=== PATIENT | female | born 1945 | race Caucasian/White ===

== ENCOUNTER → 2016-05-01 10:08 | Outpatient (CLI) | payer MEDICARE ==
[2013-10-23 14:05] VITALS: BMI 20.1
[~2016-05-01 10:08] MED LIST: FLAGYL250 MG PO; HYDROCODONE-APA1 TAB PO; NICODERM C1 PATCH .3 TD; PRILOSEC20 MG PO; RESTORIL15 MG PO
== END | disposition home or self-care (01) ==
LOC: D.CT 10:08
DX: R91.1 Solitary pulmonary nodule (principal)

== ENCOUNTER 2016-09-04 07:39 | Emergency (ER) | payer MEDICARE ==
[2013-10-23 14:05] VITALS: BMI 20.1
[2016-09-04 08:33] LABS: HEMATOCRIT 41.7 % (36.0-48.0); MCH 30.7 pg (26.0-34.0); MCHC 33.6 g/dL (31.0-37.0); MCV 91.4 fL (80.0-100.0); MEAN PLATELET VOLUME 9.1 fL (7.4-10.4); PLATELET COUNT 224 10x3/uL (130-400); RBC 4.56 10x6/uL (4.00-5.40); RDW 14.9 % (11.5-14.5); WBC 6.6 10x3/uL (4.8-10.8)
[2016-09-04 08:45] LABS: ALBUMIN 4.1 g/dL (3.4-5.0); ANION GAP 16.2 mmol/L (8-16); BILIRUBIN - TOTAL 0.5 mg/dL (0.2-1.3); CALCIUM 9.4 mg/dL (8.5-10.1); CARBON DIOXIDE 24.4 mmol/L (21.0-32.0); CREATININE - SERUM 0.9 mg/dL (0.6-1.3); POTASSIUM - SERUM 3.6 mmol/L (3.5-5.1)
[2016-09-04 09:09] LABS: APPEARANCE SLT CLOUDY (CLEAR); BACTERIA MANY /hpf (NONE SEEN); BILIRUBIN NEGATIVE (NEGATIVE); COLOR YELLOW (YELLOW); EPITHELIAL CELLS 0-5 /hpf (0-5); GLUCOSE NEGATIVE (NEGATIVE); KETONE NEGATIVE (NEGATIVE); LEUKOCYTE ESTERASE 2+ (NEGATIVE); MUCUS <1+ /lpf (NONE SEEN); NITRITE NEGATIVE (NEGATIVE); PROTEIN NEGATIVE (NEGATIVE); RED CELLS - URINE 0-5 /hpf (0-5); SPECIFIC GRAVITY 1.015 (1.005-1.020); UROBILINOGEN NORMAL (NORMAL)
[2016-09-04 09:17] LABS: EOSINOPHILS 2 % (0-7); LYMPHOCYTES 51 % (15-50); MONOCYTES 8 % (2-11); NEUTROPHILS 38 % (40-80); PLATELET ESTIMATE NORMAL
== END 2016-09-04 10:10 | disposition home or self-care (01) ==
LOC: D.ER 07:39
PROVIDERS: Emergency Medicine
DX: R00.0 Tachycardia, unspecified (principal); R11.10 Vomiting, unspecified; R19.7 Diarrhea, unspecified; N39.0 Urinary tract infection, site not specified

== ENCOUNTER → 2016-12-22 14:08 | Outpatient (CLI) | payer MEDICARE ==
[2013-10-23 14:05] VITALS: BMI 20.1
== END | disposition home or self-care (01) ==
LOC: D.CT 12-04 11:00
DX: R91.1 Solitary pulmonary nodule (principal)

== ENCOUNTER 2017-04-05 16:27 | Emergency (ER) | payer MEDICARE ==
[2013-10-23 14:05] VITALS: BMI 20.1
== END 2017-04-05 17:44 | disposition home or self-care (01) ==
LOC: D.ER 16:27
DX: I10 Essential (primary) hypertension (principal); Z91.19 Patient's noncompliance with other medical treatment and regimen; F17.200 Nicotine dependence, unspecified, uncomplicated

== ENCOUNTER 2017-08-31 16:45 | Emergency (ER) | payer MEDICARE ==
[2013-10-23 14:05] VITALS: BMI 20.1
[2017-08-31 17:22] LABS: BASOPHILS 0.5 % (0-2); EOSINOPHILS 0.9 % (0-7); HEMATOCRIT 42.2 % (36.0-48.0); HEMOGLOBIN 14.4 g/dL (12-16); IMMATURE GRANULOCYTES 0.3 % (0-5); LYMPHOCYTES 20.2 % (15-50); MCH 31.4 pg (26.0-34.0); MCHC 34.1 g/dL (31.0-37.0); MCV 92.1 fL (80.0-100.0); MEAN PLATELET VOLUME 9.7 fL (7.4-10.4); MONOCYTES 4.5 % (2-11); NEUTROPHILS 73.6 % (40-80); PLATELET COUNT 229 10x3/uL (130-400); RBC 4.58 10x6/uL (4.00-5.40); RDW 13.9 % (11.5-14.5); WBC 9.6 10x3/uL (4.8-10.8)
[2017-08-31 17:41] LABS: ALBUMIN 3.8 g/dL (3.4-5.0); ALKALINE PHOSPHATASE 124 U/L (46-116); ALT (SGPT) 45 U/L (10-68); CALC OSMOLALITY 278 mosm/kg (275-300); CALCIUM 9.9 mg/dL (8.5-10.1); CARBON DIOXIDE 26.9 mmol/L (21.0-32.0); CHLORIDE - SERUM 101 mmol/L (98-107); CREATININE - SERUM 0.9 mg/dL (0.6-1.3); GLUCOSE 128 mg/dL (74-106); POTASSIUM - SERUM 4.4 mmol/L (3.5-5.1); PROTEIN - SERUM 7.5 g/dL (6.4-8.2); SODIUM 139 mmol/L (136-145); UREA NITROGEN 11 mg/dL (7-18); eGFR NON AFRICAN AMERICAN 65 mL/min (90-120)
[2017-08-31 17:42] LABS: APPEARANCE CLEAR (CLEAR); COLOR YELLOW (YELLOW)
[2017-08-31 17:43] LABS: AMYLASE - SERUM 92 U/L (25-115); BILIRUBIN NEGATIVE (NEGATIVE); GLUCOSE NEGATIVE (NEGATIVE); KETONE NEGATIVE (NEGATIVE); LIPASE 182 U/L (73-393); NITRITE POSITIVE (NEGATIVE); PROTEIN NEGATIVE (NEGATIVE); TROPONIN-I < 0.017 ng/mL (0.000-0.060); UROBILINOGEN NORMAL (NORMAL)
[2017-08-31 17:44] LABS: BACTERIA MANY /hpf (NONE SEEN); EPITHELIAL CELLS 0-5 /hpf (0-5); RED CELLS - URINE OCC /hpf (0-5); WHITE CELLS - URINE 0-5 /hpf (0-5)
[2017-08-31 18:57] LABS: APTT 25.3 SECONDS (22.8-39.4); INR 0.94 (0.85-1.17); PROTIME 12.1 SECONDS (11.6-15.0)
== END 2017-08-31 20:59 | disposition home or self-care (01) ==
LOC: D.ER 16:45
PROVIDERS: Family Medicine; Physician Assistant Medical
DX: N39.0 Urinary tract infection, site not specified (principal); K57.92 Diverticulitis of intestine, part unspecified, without perforation or abscess without bleeding; I10 Essential (primary) hypertension; F17.200 Nicotine dependence, unspecified, uncomplicated

== ENCOUNTER 2018-07-23 10:39 | Emergency (ER) | payer OTHER ==
[~2018-07-23] VITALS: Ht 157.5 cm; Wt 60.0 kg
[2018-07-23 10:58] VITALS: Ht 157.5 cm; Wt 60.0 kg
[2018-07-23] MEDS ORDERED: BETABLOCKER PO (11:01)
[2018-07-23 11:35] LABS: BASOPHILS 0.4 % (0-2); EOSINOPHILS 2.2 % (0-7); HEMATOCRIT 42.9 % (36.0-48.0); HEMOGLOBIN 14.4 g/dL (12-16); IMMATURE GRANULOCYTES 0.1 % (0-5); LYMPHOCYTES 34.6 % (15-50); MCH 30.2 pg (26.0-34.0); MCHC 33.6 g/dL (31.0-37.0); MCV 89.9 fL (80.0-100.0); MEAN PLATELET VOLUME 9.6 fL (7.4-10.4); MONOCYTES 5.6 % (2-11); NEUTROPHILS 57.1 % (40-80); PLATELET COUNT 274 10x3/uL (130-400); RBC 4.77 10x6/uL (4.00-5.40); RDW 13.9 % (11.5-14.5); WBC 8.2 10x3/uL (4.8-10.8)
[2018-07-23 11:45] LABS: APPEARANCE HAZY (CLEAR); BILIRUBIN NEGATIVE (NEGATIVE); COLOR YELLOW (YELLOW); GLUCOSE NEGATIVE (NEGATIVE); KETONE NEGATIVE (NEGATIVE); NITRITE POSITIVE (NEGATIVE); PROTEIN NEGATIVE (NEGATIVE); UROBILINOGEN NORMAL (NORMAL)
[2018-07-23 11:46] LABS: BACTERIA MANY /hpf (NONE SEEN); HYALINE CAST 0-5 /lpf (NONE SEEN); RED CELLS - URINE 0-5 /hpf (0-5)
[2018-07-23 12:07] LABS: ALBUMIN 4.1 g/dL (3.4-5.0); ANION GAP 13.9 mmol/L (8-16); BILIRUBIN - TOTAL 0.47 mg/dL (0.2-1.3); CALCIUM 9.4 mg/dL (8.5-10.1); CARBON DIOXIDE 28.5 mmol/L (21.0-32.0); CREATININE - SERUM 0.8 mg/dL (0.6-1.3); POTASSIUM - SERUM 4.4 mmol/L (3.5-5.1); PROTEIN - SERUM 8.5 g/dL (6.4-8.2)
[2018-07-23] MEDS ORDERED: FLAGYL500 MG PO (12:30)
[2018-07-23] MEDS ORDERED: CIPRO500 MG PO (12:30)
[2018-07-23 13:11] VITALS: BP 132/68
== END 2018-07-23 13:12 | disposition home or self-care (01) ==
LOC: D.ER 10:39
PROVIDERS: Family Medicine
DX: N39.0 Urinary tract infection, site not specified (principal)

== ENCOUNTER → 2018-11-08 08:00 | Outpatient (CLI) | payer OTHER ==
[2018-07-23 10:58] VITALS: BMI 24.2
[~2018-11-08 08:00] MED LIST changes: +BETABLOCKER PO; +CIPRO500 MG PO; +FLAGYL500 MG PO
== END | disposition home or self-care (01) ==
LOC: D.MAMMO 08:00
PROVIDERS: ATTEND Family Medicine Adult Medicine
DX: Z12.31 Encounter for screening mammogram for malignant neoplasm of breast (principal)

== ENCOUNTER 2018-11-28 08:00 | Outpatient (CLI) | payer OTHER ==
[2018-07-23 10:58] VITALS: BMI 24.2
== END 2018-11-28 23:59 | disposition home or self-care (01) ==
LOC: D.MAMMO 08:00
PROVIDERS: ATTEND Family Medicine Adult Medicine
DX: R92.8 Other abnormal and inconclusive findings on diagnostic imaging of breast (principal)

== ENCOUNTER 2019-03-16 22:33 | Emergency (ER) | payer OTHER, MEDICAID ==
[~2019-03-16] VITALS: Ht 157.5 cm; Wt 55.0 kg
[2019-03-16 22:33] VITALS: Ht 157.5 cm; Wt 55.0 kg
[2019-03-16 23:08] LABS: BASOPHILS 0.4 % (0-2); HEMATOCRIT 36.5 % (36.0-48.0); HEMOGLOBIN 11.8 g/dL (12-16); LYMPHOCYTES 35.2 % (15-50); MCH 29.9 pg (26.0-34.0); MCHC 32.3 g/dL (31.0-37.0); MCV 92.6 fL (80.0-100.0); MEAN PLATELET VOLUME 8.9 fL (7.4-10.4); MONOCYTES 9.9 % (2-11); NEUTROPHILS 52.5 % (40-80); PLATELET COUNT 322 10x3/uL (130-400); RBC 3.94 10x6/uL (4.00-5.40); RDW 13.8 % (11.5-14.5)
[2019-03-16 23:22] LABS: APPEARANCE CLEAR (CLEAR); BILIRUBIN NEGATIVE (NEGATIVE); COLOR YELLOW (YELLOW); GLUCOSE NEGATIVE (NEGATIVE); KETONE NEGATIVE (NEGATIVE); NITRITE POSITIVE (NEGATIVE); PROTEIN NEGATIVE (NEGATIVE); UROBILINOGEN NORMAL (NORMAL)
[2019-03-16 23:23] LABS: RED CELLS - URINE 0-5 /hpf (0-5); WHITE CELLS - URINE 0-5 /hpf (NEGATIVE)
[2019-03-16 23:24] LABS: BACTERIA MANY /hpf (NEGATIVE); EPITHELIAL CELLS 0-5 /hpf (0-5)
[2019-03-16 23:44] LABS: UDS - AMPHET NEGATIVE QUAL (NEGATIVE); UDS - BARB NEGATIVE QUAL (NEGATIVE); UDS - BENZO POSITIVE QUAL (NEGATIVE); UDS - COCAINE NEGATIVE QUAL (NEGATIVE); UDS - OPIATE NEGATIVE QUAL (NEGATIVE); UDS - PCP NEGATIVE QUAL (NEGATIVE); UDS - THC POSITIVE QUAL (NEGATIVE)
[2019-03-16 23:46] LABS: ANION GAP 11.5 mmol/L (8-16); CALCIUM 9.2 mg/dL (8.5-10.1); CARBON DIOXIDE 29.9 mmol/L (21.0-32.0); CREATININE - SERUM 0.8 mg/dL (0.6-1.3); POTASSIUM - SERUM 3.4 mmol/L (3.5-5.1)
[2019-03-16 23:51] LABS: ALBUMIN 3.4 g/dL (3.4-5.0); BILIRUBIN - TOTAL 0.37 mg/dL (0.2-1.3); PROTEIN - SERUM 6.8 g/dL (6.4-8.2)
[2019-03-17] MEDS ORDERED: MACROBID100 MG PO (01:06)
--- NOTE | 2019-03-17 02:06 | NUR ---
DR SINCLAIR NOTIFIED AND REVIEWED PT's BEHAVIOR AND ASSESSMENT RESULTS. PT IS A LOW RISK PER DR SINCLAIR. DR SINCLAIR STATED TO GIVE RESOURCES TO PT AT TIME OF DISCHARGE. NO FURTHER ORDERS AT THIS TIME. RESOURCES REVIEWED WITH PT AND SHEVERBALIZED UNDERSTANDING.
[2019-03-17 04:30] VITALS: BP 103/50
== END 2019-03-17 08:36 | disposition home or self-care (01) ==
LOC: D.ER 22:33
PROVIDERS: Family Medicine
DX: S70.01XA Contusion of right hip, initial encounter (principal); W19.XXXA Unspecified fall, initial encounter; Y93.9 Activity, unspecified; Y92.9 Unspecified place or not applicable; N39.0 Urinary tract infection, site not specified; I10 Essential (primary) hypertension; Z72.0 Tobacco use; E07.9 Disorder of thyroid, unspecified

== ENCOUNTER 2019-03-21 19:08 | Inpatient (IN) | payer MEDICARE, MEDICAID ==
[~2019-03-21 19:08] MED LIST changes: +MACROBID100 MG PO
[2019-03-21 20:35] VITALS: BP 148/64
[2019-03-21] MEDS ORDERED: PHENERGAN25 M1 PO (21:09)
[2019-03-21] MEDS ORDERED: BENTYL10 MG PO (21:10)
[2019-03-21] MEDS ORDERED: CLARITIN 10 MG10 MG PO (21:12)
[2019-03-21] MEDS ORDERED: ABILIFY10 MG PO (21:13)
[2019-03-21] MEDS ORDERED: ABILIFY MAINTE400 MG IM (21:13)
[2019-03-21] MEDS ORDERED: CYCLOBENZAPRINE10 MG PO (21:14)
[2019-03-21] MEDS ORDERED: HYDROXYZINE HCL50 MG PO (21:16)
[2019-03-21 21:52] LABS: BASOPHILS 0.7 % (0-2); EOSINOPHILS 2.8 % (0-7); HEMATOCRIT 39.2 % (36.0-48.0); HEMOGLOBIN 12.8 g/dL (12-16); IMMATURE GRANULOCYTES 0.2 % (0-5); LYMPHOCYTES 49.4 % (15-50); MCH 30.1 pg (26.0-34.0); MCHC 32.7 g/dL (31.0-37.0); MCV 92.2 fL (80.0-100.0); MONOCYTES 8.8 % (2-11); NEUTROPHILS 38.1 % (40-80); PLATELET COUNT 374 10x3/uL (130-400); RBC 4.25 10x6/uL (4.00-5.40); RDW 13.5 % (11.5-14.5); WBC 5.7 10x3/uL (4.8-10.8)
[2019-03-21 21:58] VITALS: BP 148/64; BMI 20.6
[2019-03-21 22:37] LABS: ALBUMIN 3.9 g/dL (3.4-5.0); ANION GAP 10.5 mmol/L (8-16); BILIRUBIN - TOTAL 0.43 mg/dL (0.2-1.3); CALCIUM 9.1 mg/dL (8.5-10.1); CARBON DIOXIDE 29.7 mmol/L (21.0-32.0); CHOL - HDL RATIO 2.7 ratio (2.3-4.1); CREATININE - SERUM 0.8 mg/dL (0.6-1.3); LDL-HDL RATIO 1.3 ratio (1.5-3.5); POTASSIUM - SERUM 3.2 mmol/L (3.5-5.1); PROTEIN - SERUM 7.9 g/dL (6.4-8.2); THYROID STIMULATING HORMONE 1.73 uIU/mL (0.36-3.74)
--- NOTE | 2019-03-22 00:11 | NUR ---
NEW ADMIT TO DOCTOR SINCLAIR FROM [facility] RELATED TO ALTERED MENTAL STATUS. RECEIVED VIA EMS. CALM AND COOPERATIVE UPON ARRIVAL. ORIENTED TO PERSON ONLY AT THIS TIME. STATES SHE WANTS TO BE A FULL CODE. COOPERATIVE WITH ADMIT ASSESSMENT. IN BED WITH EYES CLOSED AT THIS TIME. ALYSHA ALARM IN PLACE AND ARMED.
--- NOTE | 2019-03-22 05:51 | NUR ---
PATIENT ANXIOUS. DEMANDING. INTRUSIVE. MANIPULATIVE. VERY ARGUMENTATIVE. BECAME ANGRY WHEN SIGNING CONSENTS BECAUSE SHE WANTED THE DOCTOR TO COME UP HERE AND READ HER THE CONSENTS WORD FOR WORD AND NOT THE NURSE EXPLAINING THE CONSENTS TO HER. FOLDED CONSENTS AND THREW THEM ON THE GROUND AFTER SCRIBBLING ON SOME OF THEM WHEN SHE DID NOT GET HER WAY. TRIED TO KEEP INK PEN AND BECAME MORE ANGRY WHEN TOLD SHE COULDNT KEEP IT FOR SAFETY REASONS. SHE THEN BROKE THE PEN IN HALF AND THREW IT ON THE DESK. UNABLE TO REDIRECT. PRN ATIVAN 0.5 MG IM GIVEN FOR ANXIETY AND PRN HALDOL 2 MG IM GIVEN FOR ONSET PSYCHOTIC UNSAFE BEHAVIOR.
[2019-03-22 09:11] VITALS: BP 134/65
[2019-03-22 09:47] VITALS: Wt 55.5 kg
--- NOTE | 2019-03-22 15:51 | NUR ---
PATIENT CALM, COOPERATIVE, ANSWERS QUESTIONS APPROPRIATELY, NO BEHAVIORAL ISSUES THIS SHIFT. COMPLIANT WITH MEDS. CONT. POC DIRECTED.
[2019-03-22 16:13] LABS: APPEARANCE HAZY (CLEAR); BACTERIA MANY /hpf (NEGATIVE); BILIRUBIN NEGATIVE (NEGATIVE); COLOR YELLOW (YELLOW); EPITHELIAL CELLS 0-5 /hpf (0-5); GLUCOSE NEGATIVE (NEGATIVE); KETONE NEGATIVE (NEGATIVE); NITRITE NEGATIVE (NEGATIVE); PROTEIN NEGATIVE (NEGATIVE); RED CELLS - URINE 0-5 /hpf (0-5); SPECIFIC GRAVITY 1.015 (1.005-1.020); UROBILINOGEN NORMAL (NORMAL); WHITE CELLS - URINE 0-5 /hpf (NEGATIVE)
--- NOTE | 2019-03-22 22:37 | NUR ---
REC'D PATIENT AMBULATING ON UNIT. ORIENTED X3. NO INSIGHT INTO THE REASON FOR ADMISSION RELATING "FOR OBSERVATION." LABILE. PATIENT APPEARS TO FOLLOW CONVERSATION BUT THEN WILL SAY SOMETHING THAT IS NOT REALTED IN ANY WAY. GRANDIOSE AT TIMES TALKING ABOUT WORKING IN THE LEGAL SYSTEM AND KNOWING HER RIGHTS AND HER RIGHTS ARE NOT BEING OBSERVED. ADMINISTER MEDS AND MONITOR COMPLIANCE. REDIRECT FOR GRANDIOSE IDEATION. MED COMPLIANT. VERY ARGUMENTATIVE WITH REDIRECTION FOR GRANDIOSE IDEATION. CONTINUE POC AND PROVIDE SAFE ENVIRONMENT.
[2019-03-22 22:50] VITALS: BP 168/58
[2019-03-23 07:55] LABS: ANION GAP 10.9 mmol/L (8-16); CARBON DIOXIDE 30.9 mmol/L (21.0-32.0); CREATININE - SERUM 0.8 mg/dL (0.6-1.3)
[2019-03-23 07:56] LABS: POTASSIUM - SERUM 3.8 mmol/L (3.5-5.1)
[2019-03-23 08:11] LABS: RAPID PLASMA REAGIN Non Reactive (Non Reactive)
--- NOTE | 2019-03-23 08:35 | NUR ---
REC'D PT SITTING IN CHAIR WRAPPED IN BLANKET AWAITING BREAKFAST. PT IS ALERT CONFUSED. ORIENTED X3. PT CAN FOLLOW INSTRUCTIONS, HOLD CONVERSION AND IS VERY PLESANT WITH STAFF. PREVIOUS STAFF REPORTED GRANDIOSE IDEATION. NO HEARD THUS FAR. PT AMBULATES. PT COMPLIANT WITH STAFF, MEDS AND ASSESSMENT. ABLE TO MAKE NEEDS KNOWN. DENIES ANY PAIN. WILL CONT PLAN OF CARE.
[2019-03-23 09:26] VITALS: BP 163/65
--- NOTE | 2019-03-23 11:44 | HP ---
PATIENT: DAYANA NAVAS MEDICAL RECORD: [id number] ACCOUNT: [id number] LOCATION:[facility] Dupree9 : 46 ADMISSION DATE: 03/21/19 PCP: ISHA FLOWERS MD HISTORY AND PHYSICAL EXAMINATION IDENTIFYING DATA: The patient is 74 years old and she is admitted to the hospital on a voluntary basis. CHIEF COMPLAINT: Confusion. HISTORY OF PRESENT ILLNESS: The patient was found at home, confused and was brought to the Emergency Room. She was making delusional statements and was quite disorganized. She has a longitudinal history of mental illness and has not been taking her medications. She denies that she is having active auditory or visual hallucinations but appears to be attending to internal stimuli consistent with having such symptoms. She denies that she would seek to harm herself or others. PAST MEDICAL HISTORY: Significant for chronic back pain. PAST PSYCHIATRIC HISTORY: Significant for previous hospitalizations for mental illness. FAMILY HISTORY: Unknown. ALLERGIES: No known drug allergies. CURRENT MEDICATIONS: Please see the patient's admissions MAR. SOCIAL HISTORY: The patient is . She had 3 children, 2 of whom have . She has an adult daughter who lives out of state. She has a history of poor social and occupational functioning. She denies a history of drug or alcohol abuse. MENTAL STATUS EXAMINATION: The patient is awake, alert and oriented to person and place but not to time or situation. Her mood is anxious. Her affect is constricted. Thought processes are disorganized. Memory, concentration, and abstraction abilities are moderately impaired and she denies any intent to harm herself or others as well as active psychotic symptoms. ASSETS: Supportive family members. LIABILITIES: Limited insight. DIAGNOSTIC IMPRESSION: AXIS I: Bipolar disorder, mixed, phase. AXIS II: Deferred. AXIS III: Chronic back pain. AXIS IV: Moderate stressors. AXIS V: Global Assessment Of Functioning is 40. PLAN: At this time, the patient is admitted to the hospital for comprehensive medical, psychological, and social evaluation. She will be treated with both mood stabilizing and memory enhancing medications. Her long-term prognosis is guarded. HISTORY AND PHYSICAL [id number] DAYANA NAVAS TRANSINT:[id number] Voice Confirmation ID: [id number] DOCUMENT ID: [id number] MAGGIE SINCLAIR MD at 1144 CC: [id number] DICTATION DATE: 03/22/191712 HOTEL DIRECTOR: 03/22/19 185 ADM IN [facility] [address] [place] [id number]
--- NOTE | 2019-03-23 13:39 | NUR ---
Nutrition Follow-up: Diet: Regular PO intake: 85-85-10% x 3 meals recorded since admit Last BM: 03/22/19. WT: 112# (03/22/19) Meds, labs, and nursing skin assessment reviewed. Continue current nutrition regimen. RD following.
[2019-03-23 20:09] VITALS: BP 180/60
--- NOTE | 2019-03-23 23:42 | NUR ---
REC'D PATIENT IN DAYROOM. INTRUSSIVE IN CONVERSATION. GRANDIOSE AND TALKS OF ALL THE IMPORTANT PEOPLE SHE KNOWS AND SHE IS THE BEST COOK THERE IS. PARANOID AND SUSPICIOUS. FREQUENTLY COMES TO THE NURSES STATION RELATING SOMEBODY IS GOING TO HURT HER, WE ARE UP TO SOMETHING, IS SHE GONG TO HER TOMORROW. ADMINISTER MEDS AND MONITOR COMPLIANCE. REORIENT WITH REALITY BASED INFORMATION FOR PARANOID THOUGHTS. MED COMPLIANT. POOR REORIENTATION PATIENT IS MORE ARGUMENTATIVE AND DOES NOT LISTEN TO REASON. APPEARS TO BE HAVING DIFFICULTY FANTASY FROM REALITY. CONTINUE POC AND PROVIDE SAFE ENVIRONMENT.
[2019-03-24 08:23] VITALS: BP 120/80
--- NOTE | 2019-03-24 11:31 | NUR ---
The patient is awake and alert, she is pleasant. She is talkative and she dances and she has not made any parnoid or suspicious statements today. She does like to talk and she talks to people like she has known them for years when she just met you. She is excessively complimentary. Provide prescribed meds. The patient is compliant with meds. Continue POC.
--- NOTE | 2019-03-24 13:39 | NUR ---
PT C/O OF ACHING NECK. STATING SHE THINKS SHE HAS WHIPLASH. PT C/O OF PAIN TO THE NECK AT THIS TIME. STAFF ENCOURGED PT TO QUIT DANCING AND SIT STILL TO SEE IF HER NECK STOPS HURTING.
--- NOTE | 2019-03-24 15:05 | PN ---
PATIENT:DAYANA NAVAS MEDICAL RECORD: [id number] LOCATION:[facility] ADMISSION DATE: 03/21/19 PROGRESS NOTE DATE OF SERVICE: 03/23/2019 SUBJECTIVE: The patient's case was discussed with staff. She has no new complaint. OBJECTIVE: The patient is in good behavioral control with poor insight about her situation. ASSESSMENT: Bipolar disorder. PLAN: Current medicines and therapies have been reviewed, both will be maintained. I am going to start her on an antipsychotic medication for her thought disorganization. I have spoken with her about lithium and Depakote, she does not want to take either, her reasons are evasive and I will approach this subject with her again. TRANSINT:[id number] Voice Confirmation ID: [id number] DOCUMENT ID: [id number] MAGGIE SINCLAIR MD at 1505 CC: [id number] DICTATION DATE: 03/23/191830 ROBOTIC TECHNICIAN: 03/23/192016 ADM IN [facility] [address] [place] [address]
[2019-03-24 20:59] VITALS: BP 166/69
--- NOTE | 2019-03-24 22:54 | NUR ---
B.) PT IS ALERT AND ORIENTED TO SELF AND SITUATION. SHE IS ABLE TO AMBULATE UNASSISTED AND MAKE HER NEEDS KNOWN. SHE IS PLEASANT WITH STAFF AND PEERS. SHE IS RECEIVED IN THE DAY ROOM SOCIALIZING WITH PEERS AND STAFF. I.) REDIRECT NEEDED. R.) EASY TO REDIRECT. P.) WILL CONTINUE TO MONITOR.
--- NOTE | 2019-03-25 00:26 | NUR ---
PT IS USING TOOTHPASTE TO DRAW ON THE HEAD. RESISTS REDIRECTION. WILL CONTINUE TO MONITOR.
--- NOTE | 2019-03-25 08:07 | PN ---
PATIENT:DAYANA NAVAS MEDICAL RECORD: [id number] LOCATION:[facility] Weeks112 ADMISSION DATE: 03/21/19 PROGRESS NOTE DATE OF SERVICE: 03/24/2019 SUBJECTIVE: The patient's case was discussed with staff. She has no new complaint. OBJECTIVE: The patient denies intent to harm herself or others. She has some mood lability. Her primary mood is, however, depressed. ASSESSMENT: Bipolar disorder. PLAN: The patient will be given Depakote to assist with her mood lability. She will be monitored for clinical changes associated with its use. TRANSINT:[id number] Voice Confirmation ID: [id number] DOCUMENT ID: [id number] MAGGIE SINCLAIR MD at 0807 CC: [id number] DICTATION DATE: 03/24/19 162 BROKE BEATER MACHINE OPERATOR: 03/24/19 2257 ADM IN [place] [id number] [place] [address]
[2019-03-25 08:30] VITALS: BP 164/75
--- NOTE | 2019-03-25 14:09 | NUR ---
PT. CALM THIS SHIFT, TALKATIVE WITH OTHER PATIENTS, MEDICATION COMPLIANT. NO ADVERSE BEHAVIORS NOTED. COOPERATIVE WITH STAFF AND PLAN OF CARE. CONT POC DIRECTED.
[2019-03-25 20:00] VITALS: BP 153/75
--- NOTE | 2019-03-26 00:30 | NUR ---
PT ANXIOUS AND ROAMING HER ROOM. REQUESTED PRN ATIVAN 0.5 MG PO. WILL CONTINUE TO MONITOR.
--- NOTE | 2019-03-26 01:15 | NUR ---
PT RESTING CALMLY IN BED WITH EYES CLOSED. WILL CONTINUE TO MONITOR.
--- NOTE | 2019-03-26 02:12 | NUR ---
B) Patient is alert and oriented to person and place, bizzare behavior at times, restless and anxious at times I) Administered scheduled medications as ordered, PRN Ativan 0.5 mg PO given at 00:37 for anxiety R) Mediation compliant, tolerated medication well, less anxious, sleeping now. P) Continue plan of care
--- NOTE | 2019-03-26 03:50 | NUR ---
PT TRYING TO SLEEPWALK IN THE [place]. SHE IS VERY DISORIENTED AND DIFFICULT TO REDIRECT. PLACED IN HALLWAY IN [facility] BY NURSES STATION. WILL CONTINUE TO MONITOR.
--- NOTE | 2019-03-26 10:10 | NUR ---
PT IS AWAKE AND ALERT TO PERSON AND PLACE. CALM AND COOPERATIVE WITH ASSESSMENT. PRESCRIBED MEDS PROVIDED ORDERED. MED COMPLIANT. REDIRECT AND REORIENT NEEDED. FALL PRECAUTIONS IN PLACE. WILL CPOC.
[2019-03-26 11:09] VITALS: BP 135/76
--- NOTE | 2019-03-26 14:27 | PN ---
PATIENT:DAYANA NAVAS MEDICAL RECORD: [id number] LOCATION:[facility] We[facility]112 ADMISSION DATE: 03/21/19 PROGRESS NOTE DATE OF SERVICE: 03/25/2019 SUBJECTIVE: The patient's case was discussed with staff. She has no new complaint. OBJECTIVE: The patient is in good behavioral control with limited insight about her condition. She apparently had some sort of a bizarre episode yesterday that involved her spreading toothpaste all over the rivera. When asked about this today, she tells me that it did not happen. I am not sure what to make of this. It did not seem like it was an attention seeking personality disordered behavioral set of circumstances, but when truly related to a person who is not in touch with reality. Based on that description, which I think is accurate and from sources I trust, I am going to go ahead and increase her Zyprexa to 5 mg at bedtime. Although, I did not witness the event, I think that there is sufficient information to justify the increase in the antipsychotic medication and I will be titrating upward her Depakote as well. Interestingly, she was complaining about the Depakote in a vague nonspecific way primarily about how it made her sick years ago, but she is willing to take it when I explained the potential benefit and that I will increase the dose slowly and monitor her for side effects. I am encouraged by this since her bipolar disorder does require a mood stabilizer. TRANSINT:[id number] Voice Confirmation ID: [id number] DOCUMENT ID: [id number] MAGGIE SNICLAIR MD at 1427 CC: [id number] DICTATION DATE: 03/25/19923 LIGHT TECHNICIAN: 03/25/19 1011 ADM IN [facility] [address] [place] [address]
[2019-03-26 20:00] VITALS: BP 151/69
--- NOTE | 2019-03-26 21:38 | NUR ---
RECEIVED IN DAYROOM. SITTING IN A RECLINING CHAIR WITH PEERS AT HER SIDE. CALM AND COOPERATIVE WITH CARE AND ASSESSMENT. REDIRECT AND REORIENT NEEDED. RESTING IN BED WITH EYES CLOSED AT THIS TIME. CONTINUE PLAN OF CARE
--- NOTE | 2019-03-27 00:58 | NUR ---
PATIENT VERY CONFUSED. DELUSIONAL. ATTEMPTS TO STAND WITHOUT ASSIST. UNABLE TO REDIRECT OR REORIENT. PRN HALDOL 2MG IM GIVEN FOR PSYCHOTIC UNSAFE BEHAVIOR.
--- NOTE | 2019-03-27 04:07 | NUR ---
RESTING QUIETLY IN RECLINER WITH EYES CLOSED.
--- NOTE | 2019-03-27 10:51 | NUR ---
PT IS AWAKE AND ALERT TO PERSON AND PLACE. CALM AND COOPERATIVE WITH ASSESSMENT. PRESCRIBED MEDS PROVIDED ORDERED. MED COMPLIANT. PT APPEARS TO BE MANIC AT THIS TIME. PACING BACK AND FORTH IN THE DAY ROOM. VERY TALKATIVE WITH PEERS AND STAFF. REDIRECT AND REORIENT NEEDED. FALL PRECAUTIONS IN PLACE. WILL CPOC.
--- NOTE | 2019-03-27 13:13 | PN ---
PATIENT:DAYANA NAVAS MEDICAL RECORD: [id number] LOCATION:[facility] ADMISSION DATE: 03/21/19 PROGRESS NOTE DATE OF SERVICE: 03/26/2019 SUBJECTIVE: The patient's case was discussed with staff. She has no new complaint. OBJECTIVE: The patient is in good behavioral control, but manic. She is wanting to dance and was trying to moonwalk and almost fell over. She is hyperverbal. ASSESSMENT: Bipolar disorder. PLAN: The patient will be maintained on current medicines; however, the Depakote will be increased to 500 mg twice daily. She will be monitored for clinical changes associated with its use. Her long-term prognosis is guarded. TRANSINT:[id number] Voice Confirmation ID: [id number] DOCUMENT ID: [id number] MAGGIE SINCLAIR MD at 1313 CC: [id number] DICTATION DATE: 03/26/19 1443 MANAGEMENT SCIENTIST: 03/26/19 1800 ADM IN [place] [place] [address]
[2019-03-27 20:15] VITALS: BP 136/64
--- NOTE | 2019-03-27 21:37 | NUR ---
RECEIVED IN DAYROOM. SITTING IN A CHAIR WITH PEERS AT HER SIDE. CALM AND COOPERATIVE WITH CARE AND ASSESSMENT. ENCOURAGE TO EXPRESS NEEDS. RESTING IN BED WITH EYES CLOSED AT THIS TIME. CONTINUE PLAN OF CARE
[2019-03-28 08:00] VITALS: BP 146/75
--- NOTE | 2019-03-28 08:00 | NUR ---
REC'D PT PACING HALLWAY THIS MORNING BY NURSES STATION. CALM AND COOPERATIVE WITH ASSESSMENT. PRECRIBED MEDS PROVIDED ORDERED. MED COMPLIANT. REDIRECT AND REORIENT NEEDED. FALL PRECAUTIONS IN PLACE. WILL CPOC.
--- NOTE | 2019-03-28 11:11 | PN ---
PATIENT:DAYANA NAVAS MEDICAL RECORD: [id number] LOCATION:[facility]112 ADMISSION DATE: 03/21/19 PROGRESS NOTE DATE OF SERVICE: 03/27/2019 SUBJECTIVE: The patient's case was discussed with staff. She has no new complaint. OBJECTIVE: The patient is delusional. She is claiming that she is an [employer] and [employer] agent. 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 ASSESSMENT: Bipolar disorder. PLAN: The patient will have her Zyprexa increased to 10 mg daily. Zyprexa is being used to treat her underlying psychotic symptoms. She will be monitored for clinical changes associated with its use. TRANSINT:[id number] Voice Confirmation ID: [id number] DOCUMENT ID: [id number] MAGGIE SINCLAIR MD at 1111 CC: [id number] DICTATION DATE: 03/27/19 172 FORK TRUCK DRIVER: 03/28/19 0241 ADM IN [place] [id number] [place] [id number]
[2019-03-28 20:00] VITALS: BP 155/58
--- NOTE | 2019-03-28 23:39 | NUR ---
B) pATIENT IS ALERT AND ORIENTED TO PERSON AND PLACE MOST OF THE TIME, BIZZAR BEHAVIOR AT TIMES, DELUSIONAL OR HALLUCINATING AT TIMES, I) Administered schedule medications as ordered, monitored for safety R) Medication compliant, redirected as needed, P) Continue plan of care.
--- NOTE | 2019-03-29 08:37 | PN ---
PATIENT:DAYANA NAVAS MEDICAL RECORD: [id number] LOCATION:[facility] We[facility]112 ADMISSION DATE: 03/21/19 PROGRESS NOTE DATE OF SERVICE: 03/28/2019 SUBJECTIVE: The patient's case was discussed with staff. She has no new complaint. OBJECTIVE: The patient is delusional. She still is insisting that she is an undercover [employer] and [employer] agent at the same time. ASSESSMENT: Bipolar disorder. PLAN: The patient is going to be continued on current medicines, which I have reviewed. I am going to ask for a Depakote level today. Her long-term prognosis is guarded. TRANSINT:[id number] Voice Confirmation ID: [id number] DOCUMENT ID: [id number] MAGGIE SINCLAIR MD at 0837 CC: [id number] DICTATION DATE: 03/28/19 1324 ICE DELIVERY DRIVER: 03/28/19 1407 ADM IN [place] [id number] [place] [address]
[2019-03-29 11:30] VITALS: BP 144/60
--- NOTE | 2019-03-29 15:57 | NUR ---
ORIENTED.COMPLIANT WITH STAFF AND MEDS.VISITS WITH STAFF AND PEERS.AMBULATES ABOUT UNIT WITHOUT DIFFICULTY.WILL CONTINUE WITH PLAN OF CARE,MONITOR FOR CHANGES AND SAFETY.
[2019-03-29 20:28] VITALS: BP 170/61
--- NOTE | 2019-03-30 00:20 | NUR ---
B)RECIVED SITTING IN THE DAYROOM. POOR INSIGHT INTO THE REASON FOR HOSPITALIZATION. TRIES TO HELP WITH PATIENTS. INTRUSSIVE AND WILL STAND AND LISTEN TO OTHERS CONVERSATION. I)ADMINSTER MEDS AND MONITOR COMPLIANCE. REDIRECT FOR INTRUSSIVE BEHAVIOR. R)MED COMPLIANT HOWEVER HAS DIFFICULTY SWALLOWING THE DEPAKOTE. POOR REDIRECTION. CONTINUES TO LISTEN AND IS GRANDIOSE. P)CONTINUE POC AND PROVIDE SAFE ENVIRONMENT.
[2019-03-30 09:56] VITALS: BP 134/61
--- NOTE | 2019-03-30 11:09 | NUR ---
Nutrition Follow-up: Diet: Regular PO intake: ~83% average x last 9 meals Last BM: 03/29/19. WT: 117# (03/26/19); Admit wt: 114.6# (03/21/19) Meds reviewed, no new labs. Continue current nutrition regimen. RD following.
--- NOTE | 2019-03-30 15:22 | PN ---
PATIENT:DAYANA NAVAS MEDICAL RECORD: [id number] LOCATION:[facility] ADMISSION DATE: 03/21/19 PROGRESS NOTE DATE OF SERVICE: 03/29/2019 SUBJECTIVE: The patient's case was discussed with staff. She has no new complaint. OBJECTIVE: The patient is somewhat hyperverbal and has difficulty following directions. She has a therapeutic Depakote level. She continues to be somewhat intrusive. She is taking her medicines as prescribed. I am going to increase her Zyprexa to 15 mg daily. TRANSINT:[id number] Voice Confirmation ID: [id number] DOCUMENT ID: [id number] MAGGIE SINCLAIR MD at 1522 CC: [id number] DICTATION DATE: 03/29/19 1003 OPTICAL MECHANIC APPRENTICE: 03/29/19 1022 ADM IN [id number] [place] [address]
--- NOTE | 2019-03-30 16:19 | NUR ---
B) PATIENT IS ALERT AND ORIENTED MOST OF THE TIME. CALM AND COOPERATIVE WITH CARE AND ASSESSMENT. I) ADMINISTERED PRESCRIBED MEDICATIONS ORDERED. MONITOR FOR SAFETY. R) MEDICATION COMPLIANT. REDIRECT NEEDED. P) CONTINUE POC.
[2019-03-30 20:00] VITALS: BP 134/52
--- NOTE | 2019-03-30 21:14 | NUR ---
PATIENT IS INTRUSIVE, DEMANDING AT TIMES, SHE IS AWARE OF WHERE SHE IS, COMPLIANT WITH MEDS, NO SIDE EFFECTS OF MEDS, WILL FOLLOW POC
[2019-03-31 08:02] VITALS: BP 137/68
--- NOTE | 2019-03-31 10:14 | NUR ---
ALERT, CALM, COOPERATIVE, PARTICIPATING IN GROUP, HAPPY MOOD. MEDS ADMIN PER ORDERS WITH COMPLETE MED COMPLIANCE NOTED. COOPERATIVE WITH PLAN OF CARE. CONT POC DIRECTED.
--- NOTE | 2019-03-31 14:14 | PN ---
PATIENT:DAYANA NAVAS MEDICAL RECORD: [id number] LOCATION:[facility]112 ADMISSION DATE: 03/21/19 PROGRESS NOTE DATE OF SERVICE: 03/30/2019 SUBJECTIVE: The patient's case was discussed with staff. She has no new complaint. OBJECTIVE: The patient is somewhat disorganized and distressed. I think she is under the impression that she is going to have to live here which has never been the case. I told her that repeatedly and tell her that again today, but for whatever reason she is not comfortable or has problems believing me. She is taking her medications and tolerating them reasonably well. ASSESSMENT: Schizoaffective disorder. PLAN: The patient's Depakote is going to be changed to a sprinkle so that she can more easily swallow it. She is having a great deal of trouble doing so and now change the formulation. TRANSINT:[id number] Voice Confirmation ID: [id number] DOCUMENT ID: [id number] MAGGIE SINCLAIR MD at 1414 CC: [id number] DICTATION DATE: 03/30/19 1542 AIRFRAME DESIGN ENGINEER: 03/31/19 0002 ADM IN [facility] [address] [place] [address]
[2019-03-31 20:10] VITALS: BP 117/65
--- NOTE | 2019-03-31 21:36 | NUR ---
RECEIVED IN DAYROOM. WATCHING TV. CALM AND COOPERATIVE WITH CARE AND ASSESSMENT. CONFUSED. NO AGGRESSIVE BEHAVIOR. REDIRECT AND REORIENT NEEDED. CONTINUES TO WATCH TV IN DAYROOM AT THIS TIME. CONTINUE PLAN OF CARE.
[2019-04-01 08:00] VITALS: BP 133/62
--- NOTE | 2019-04-01 08:22 | NUR ---
The patient is awake and alert and she is pleasant and calm. She is not as manic as she has been, but she does not like to sit still. She ambulates independently. Provide prescribed meds. Will monitor for compliance with meds. Continue POC.
--- NOTE | 2019-04-01 09:53 | NUR ---
The patient c/o her gums hurting. She has not worn dentures since coming here.
--- NOTE | 2019-04-01 13:05 | PN ---
PATIENT:DAYANA NAVAS MEDICAL RECORD: [id number] LOCATION:[facility] ADMISSION DATE: 03/21/19 PROGRESS NOTE DATE OF SERVICE: 03/31/2019 SUBJECTIVE: The patient's case was discussed with staff. She has no new complaint. OBJECTIVE: The patient denies intent to harm herself or others. She is tolerating her medicines reasonably well. ASSESSMENT: Bipolar disorder. PLAN: The patient's Valium is going to be reduced to 1 mg twice daily. She will be monitored for clinical changes associated with that reduction. Other medicines will be maintained. TRANSINT:[id number] Voice Confirmation ID: [id number] DOCUMENT ID: [id number] MAGGIE SINCLAIR MD at 1305 CC: [id number] DICTATION DATE: 03/31/19 1551 FIELD ARTILLERY CANNONEER: 04/01/19 0038 ADM IN [place] [id number] [place] [id number]
--- NOTE | 2019-04-01 19:49 | NUR ---
RECEIVED IN DINING ROOM AREA. SITTING AT THE TABLE BY HERSELF. CALM AND COOPERATIVE WITH CARE AND ASSESSMENT. ENCOURAGE TO EXPRESS NEEDS. SITTING CALMLY IN DAYROOM. CONTINUE PLAN OF CARE
[2019-04-01 20:24] VITALS: BP 144/66
[2019-04-02 08:17] VITALS: BP 135/63
[2019-04-02] MEDS ORDERED: BACTRIM DS PO (12:34)
[2019-04-02] MEDS ORDERED: ZYPREXA5 MG PO (12:34)
[2019-04-02] MEDS ORDERED: DEPAKOTE SPRIN125 MG PO (12:34)
[2019-04-02] MEDS ORDERED: VITAMIN B-12250 MC3 PO (12:35)
[2019-04-02] MEDS ORDERED: FLORAJEN3 CAPS460 MG PO (12:35)
--- NOTE | 2019-04-02 14:41 | NUR ---
PT IS SITTING AND READING A BOOK. FRIENDLY WITH STAFF AND PEERS. VERY HELPFUL WHEN ASKED. NO BEHAVIORS NOTED. PT IS COMPLIANT WITH STAFF, MEDS, VITALS AND ASSESSMENTS. CAN MAKE NEEDS KNOWN. PT IS ALERT AND ORIENTED TO PERSON, TIME AND PLACE. WILL CONT PLAN OF CARE.
--- NOTE | 2019-04-02 19:11 | NUR ---
RECEIVED IN DAYROOM. RESTING ON COUCH WITH EYES OPEN. CALM AND COOPERATIVE WITH CARE AND ASSESSMENT. NO AGGRESSIVE BEHAVIOR. NO ARGUMENTATIVE BEHAVIOR. REDIRECT AND REORIENT NEEDED. SOCIALIZING WITH PEERS AT THIS TIME. CONTINUE PLAN OF CARE.
[2019-04-02 20:29] VITALS: BP 163/66
--- NOTE | 2019-04-03 10:00 | NUR ---
ALERT, CALM, COOPERATIVE, PLEASANT MOOD, LOOKING FORWARD TO DISCHARGE LATER THIS SHIFT. MEDS ADMIN PER ORDERS WITH COMPLETE MED COMPLIANCE NOTED. NO ADVERSE BEHAVIORS NOTED. PLANS ARE TO D/C LATER THIS SHIFT.
[2019-04-03 10:23] VITALS: BP 124/66
--- NOTE | 2019-04-03 13:49 | PN ---
PATIENT:DAYANA NAVAS MEDICAL RECORD: [id number] LOCATION:[facility] We[facility]112 ADMISSION DATE: 03/21/19 PROGRESS NOTE DATE OF SERVICE: 04/01/2019 SUBJECTIVE: The patient's case was discussed with staff. She has no new complaint. OBJECTIVE: The patient is in good behavioral control. She is anxious to go home. I have informed her I am going to let her go on Wednesday if she continues to do well. ASSESSMENT: Bipolar disorder. PLAN: Plans are being made for her discharge. She has some friends or family that are going to assist her and she is going to make some of those phone calls this weekend. TRANSINT:[id number] Voice Confirmation ID: [id number] DOCUMENT ID: [id number] MAGGIE SINCLAIR MD at 1349 CC: [id number] DICTATION DATE: 04/01/19 1402 VENTILATED RIB FITTER: 04/01/19 1450 ADM IN [id number] [place] [address]
--- NOTE | 2019-04-03 13:49 | PN ---
PATIENT:DAYANA NAVAS MEDICAL RECORD: [id number] LOCATION:[facility]112 ADMISSION DATE: 03/21/19 PROGRESS NOTE DATE OF SERVICE: 04/02/2019 SUBJECTIVE: The patient's case was discussed with staff. She has no new complaint. OBJECTIVE: The patient is in good behavioral control. She has very limited insight about her situation, but no evidence of acute or direct dangerousness to herself or others. ASSESSMENT: Bipolar disorder. PLAN: The patient will be transitioned out of the hospital tomorrow. Followup will be with her primary care physician and with the [facility]. TRANSINT:[id number] Voice Confirmation ID: [id number] DOCUMENT ID: [id number] MAGGIE SINCLAIR MD at 1349 CC: [id number] DICTATION DATE: 04/02/19 1233 TOLL MECHANIC: 04/02/19 1322 ADM IN [place] [id number] [place] [id number]
--- NOTE | 2019-04-03 14:00 | NUR ---
PERSONAL BELONGINGS RETURNED TO PATIENT, DISCHARGE INSTRUCTIONS GIVEN PER CHARGE NURSE. [facility] CALLED. PATIENT DISCHARGED HOME, ASSISTED INTO [facility]. PRESCRIPTIONS E-FAXED TO PHARMACY.
--- NOTE | 2019-04-04 15:10 | PN ---
PATIENT:DAYANA NAVAS MEDICAL RECORD: [id number] LOCATION:[facility] ADMISSION DATE: 03/21/19 PROGRESS NOTE DATE OF SERVICE: 04/03/2019 SUBJECTIVE: The patient's case was discussed with staff. She has no new complaint. OBJECTIVE: The patient is in good behavioral control and has no thoughts of harming herself or others. She is tolerating her medicines well. ASSESSMENT: Bipolar disorder. PLAN: Current medicines and therapies have been reviewed. She has no evidence of acute or direct dangerousness. She will be transitioned out of the hospital today. TRANSINT:[id number] Voice Confirmation ID: [id number] DOCUMENT ID: [id number] MAGGIE SINCLAIR MD at 1510 CC: [id number] DICTATION DATE: 04/03/19 1551 TISSUE RECOVERY TECHNICIAN: 04/03/19 [id number] DIS IN 04/03/19 [facility] [address] [place] [address]
== END 2019-04-03 20:41 | disposition home or self-care (01) | DRG 885 ==
LOC: D.PSYCH 19:08
PROVIDERS: Family Medicine; ADMIT Psychiatry & Neurology Psychiatry; ATTEND Psychiatry & Neurology Psychiatry
DX: F25.0 Schizoaffective disorder, bipolar type (principal); N39.0 Urinary tract infection, site not specified; E87.6 Hypokalemia; R73.03 Prediabetes; I12.9 Hypertensive chronic kidney disease with stage 1 through stage 4 chronic kidney disease, or unspecified chronic kidney disease; N18.2 Chronic kidney disease, stage 2 (mild); G89.29 Other chronic pain

== ENCOUNTER 2019-04-07 00:04 | Emergency (ER) | payer OTHER, MEDICAID ==
[~2019-04-07] VITALS: Ht 157.5 cm; Wt 59.5 kg
[~2019-04-07 00:04] MED LIST changes: +ABILIFY MAINTE400 MG IM; +ABILIFY10 MG PO; +BACTRIM DS PO; +BENTYL10 MG PO; +CLARITIN 10 MG10 MG PO; +CYCLOBENZAPRINE10 MG PO; +DEPAKOTE SPRIN125 MG PO; +FLORAJEN3 CAPS460 MG PO; +HYDROXYZINE HCL50 MG PO; +PHENERGAN25 M1 PO; +VITAMIN B-12250 MC3 PO; +ZYPREXA5 MG PO
[2019-04-07 00:26] VITALS: Ht 157.5 cm; Wt 59.5 kg
[2019-04-07 01:58] LABS: CALC OSMOLALITY 275 mosm/kg (275-300); CALCIUM 8.9 mg/dL (8.5-10.1); CARBON DIOXIDE 23.6 mmol/L (21.0-32.0); CHLORIDE - SERUM 103 mmol/L (98-107); CREATININE - SERUM 0.6 mg/dL (0.6-1.3); GLUCOSE 89 mg/dL (74-106); POTASSIUM - SERUM 3.5 mmol/L (3.5-5.1); SODIUM 139 mmol/L (136-145); UREA NITROGEN 11 mg/dL (7-18); eGFR NON AFRICAN AMERICAN > 90 mL/min (90-120)
[2019-04-07 02:06] LABS: ALBUMIN 3.2 g/dL (3.4-5.0); ALKALINE PHOSPHATASE 83 U/L (46-116); ALT (SGPT) 44 U/L (10-68); AMYLASE - SERUM 100 U/L (25-115); BILIRUBIN - TOTAL 0.29 mg/dL (0.2-1.3); LIPASE 232 U/L (73-393); PROTEIN - SERUM 6.4 g/dL (6.4-8.2); TROPONIN-I < 0.017 ng/mL (0.000-0.060)
[2019-04-07 02:08] LABS: BASOPHILS 0.3 % (0-2); EOSINOPHILS 0.9 % (0-7); HEMOGLOBIN 11.5 g/dL (12-16); IMMATURE GRANULOCYTES 0.3 % (0-5); MCH 29.6 pg (26.0-34.0); MCHC 33.8 g/dL (31.0-37.0); MCV 87.6 fL (80.0-100.0); MEAN PLATELET VOLUME 11.3 fL (7.4-10.4); MONOCYTES 8.3 % (2-11); NEUTROPHILS 67.2 % (40-80); RBC 3.88 10x6/uL (4.00-5.40); RDW 13.7 % (11.5-14.5)
[2019-04-07 02:12] LABS: PLATELET COUNT 192 10x3/uL (130-400)
[2019-04-07 02:48] LABS: APPEARANCE CLEAR (CLEAR); BILIRUBIN NEGATIVE (NEGATIVE); COLOR STRAW (YELLOW); GLUCOSE NEGATIVE (NEGATIVE); KETONE NEGATIVE (NEGATIVE); NITRITE NEGATIVE (NEGATIVE); PROTEIN NEGATIVE (NEGATIVE); SPECIFIC GRAVITY 1.005 (1.005-1.020); UROBILINOGEN NORMAL (NORMAL)
[2019-04-07] MEDS ORDERED: LOPERAMIDE HCL2 MG PO (04:55)
[2019-04-07] MEDS ORDERED: FLAGYL500 MG PO (04:55)
[2019-04-07] MEDS ORDERED: CIPRO500 MG PO (04:55)
[2019-04-07 05:15] VITALS: BP 103/58
== END 2019-04-07 05:15 | disposition home or self-care (01) ==
LOC: D.ER 00:04
PROVIDERS: Family Medicine
DX: K52.9 Noninfective gastroenteritis and colitis, unspecified (principal); K57.92 Diverticulitis of intestine, part unspecified, without perforation or abscess without bleeding; I10 Essential (primary) hypertension; E07.9 Disorder of thyroid, unspecified; Z72.0 Tobacco use

== ENCOUNTER 2019-12-21 02:24 | Emergency (ER) | payer OTHER, MEDICAID ==
[~2019-12-21] VITALS: Ht 157.5 cm; Wt 50.9 kg
[~2019-12-21 02:24] MED LIST changes: +LOPERAMIDE HCL2 MG PO
[2019-12-21 02:32] VITALS: BP 130/66; Ht 157.5 cm; Wt 50.9 kg
[2019-12-21] MEDS ORDERED: CYCLOBENZAPRINE10 MG PO (03:11)
== END 2019-12-21 03:34 | disposition home or self-care (01) ==
LOC: D.ER 02:24
DX: T14.8XXA Other injury of unspecified body region, initial encounter (principal); W01.10XA Fall on same level from slipping, tripping and stumbling with subsequent striking against unspecified object, initial encounter; Y93.9 Activity, unspecified; Y92.9 Unspecified place or not applicable; E07.9 Disorder of thyroid, unspecified; I10 Essential (primary) hypertension; Z72.0 Tobacco use; R10.9 Unspecified abdominal pain